=== PATIENT | male | born 1955 | race Caucasian/White ===

== ENCOUNTER → 2019-10-20 | Outpatient (CLI) | payer BC | LOC: COL.RAD 09:22 | DX: C61 Malignant neoplasm of prostate (principal) | CPT/HCPCS: A9503 ==

== ENCOUNTER 2019-11-25 08:27 | Inpatient (IN) | payer BC ==
[~2019-11-25] VITALS: Ht 177.8 cm; Wt 105.9 kg
[2019-11-26] VITALS (11 sets, daily range): BP systolic 118–153; BP diastolic 59–81; PULSE 58–75; TEMP 97.5–98.8
[2019-11-26] MEDS ORDERED: ZIAC 5/6.25MG T1 TAB PO (06:21)
[2019-11-26] MEDS ORDERED: 5-HTP100 MG PO (06:22)
[2019-11-26] MEDS ORDERED: LIPITOR 80MG80 MG PO (06:22)
--- NOTE | 2019-11-26 12:40 | NUR ---
Patient up from OR. Alert and oriented x 3. Spouse at bedside. Lap sites x 4 and midline with edges well approximated. JERRI to LLQ with bloody drainage present in bag, drainage also present at JERRI dressing. Escobar to dependent drainage with dark maroon colored urine, small clots present. Post op VSS. Post op fluids infusing to left wrist IV. SCDs to BLE. Denies further needs at this time.
--- NOTE | 2019-11-26 15:09 | NUR ---
Radiological Technician met with patient and patient's , Denise (ph#[phone]) to discuss discharge planning. Patient lives with his in [place], [place]. Patient sees Gautam Fournier PA-C for primary care and has medications delivered to his home by [facility]. Patient does not use any DME. Patient does not have Advance Directives and is not interested in setting up DPOA-HC at this time. Patient plans to return home upon discharge. No additional concerns at this time.
--- NOTE | 2019-11-26 18:42 | NUR ---
Patient has done well throughout the day. States mild pain at incision sites, refused additional pain medication. Family at bedside throughout the day. Denies pain at this time. Tolerating diet without difficulties. Denies further needs at this time.
--- NOTE | 2019-11-26 18:50 | NUR ---
REPORT RECEIVED FROM BILL LUIS. CARE OF PT ASSUMED AT THIS TIME. PT DENIES NEEDS. CALL LIGHT WITHIN REACH.
--- NOTE | 2019-11-26 20:19 | NUR ---
PT IS ALERT, OX4, APPROPRIATE; VISITING WITH FAMILY UPON ENTRANCE TO ROOM. PT REPORTS SOME MILD PAIN TO ABDOMEN AT INCISION SITES WITH MOVEMENT/ACTIVITY. SCHEDULED TYLENOL GIVEN AT THIS TIME. PT DENIES ANY OTHER ISSUES. SCD'S PLACED ON BILAT. LR INFUSING WITHOUT COMPLICATIONS. CALL LIGHT WITHIN REACH. PT INSTRUCTED TO CALL FOR ASSIST IF NEEDS TO GET OUT OF BED. PT IS AGREEABLE TO THIS.
[2019-11-27 00:10] VITALS: BP 135/59; PULSE 72; TEMP 98.6
[2019-11-27 04:43] VITALS: BP 119/57; PULSE 64; TEMP 98.5
--- NOTE | 2019-11-27 05:45 | NUR ---
PT HAS HAD A GOOD NIGHT, SLEPT WELL THROUGH THE NIGHT. PT REPORTS PAIN TO ABDOMEN ONLY WITH ACTIVITY/MOVEMENT; DENIES PAIN WHILE JUST RESTING. CANNON CATH IN PLACE WITH CLEAR, VEDA URINE NOTED. IVF HAVE BEEN LOCKED D/T PT TOLERATING DIET WITHOUT ISSUES. JERRI DRAIN HAS HAD SMALL AMOUNT OF BLOODY OUTPUT, DECREASING IN AMOUNT. PT DENIES ANY OTHER NEEDS. CALL LIGHT WITHIN REACH.
[2019-11-27 07:24] VITALS: BP 117/59; PULSE 75; TEMP 97.8
[2019-11-27 07:40] LABS: BASO % 0.1 % (0.0-2.0); EOS % 0.1 % (0-4.0); GRAN # 12.5 (1.4-6.5); GRAN % 82.6 % (42.2-75.2); HEMOGLOBIN 12.4 g/dl (13.5-18.0); LYMPH # 1.4 (1.2-3.4); LYMPH % 8.9 % (20.0-51.0); MEAN CELL VOLUME 88 fl (80.0-100.0); MEAN CORPUSCULAR HEMOGLOBIN 30 pg (27.0-31.0); MEAN CORPUSCULAR HGB CONC 34 g/dl (33.0-37.0); MEAN PLATELET VOLUME 10.6 fl (7.4-10.4); MONO # 1.2 (0.1-0.6); MONO % 7.8 % (1.7-9.3); PLATELET COUNT 197 K/mm3 (130-400); RED BLOOD COUNT 4.13 M/mm3 (4.20-5.60); REDCELL DISTRIBUTION WIDTH-CV 13.2 % (11.5-14.5)
[2019-11-27 07:42] LABS: HEMATOCRIT 36.2 % (42.0-52.0)
[2019-11-27 07:53] LABS: CALCIUM 8.7 mg/dL (8.4-10.2); CREATININE, serum 1.17 (0.66-1.25); POTASSIUM 4.2 mmol/L (3.4-5.0)
--- NOTE | 2019-11-27 08:30 | NUR ---
Patient in bed resting. Alert and oriented x 3. Shift assessment complete. Lap sites x 4 and midline incision with edges well approximated. Escobar to dependent drainage with clear yellow urine present. JERRI drain to LLQ with bloody drainge present on dressing, also has bloody driange present in bulb. Patient denies passing gas or BM. Denies pain at this time. Denies further needs at this time.
--- NOTE | 2019-11-27 08:30 | NUR ---
Patient in bed resting. Alert and oriented x 3. Shift assessment complete. Lap sites x4 and midline incision with edges well approximated. JERRI site with drainage present on dressing, small amount of bloody drainge present in bulb. Escobar to dependent drainage with clear yellow urine present in bag. Patient states he did have a BM early this AM. State mild neck to pain relieved by hot pack last night, kpad placed on patient. Denies further needs at this time.
[2019-11-27 11:47] VITALS: BP 126/68; PULSE 98; TEMP 97.8
[2019-11-27 16:55] VITALS: BP 146/71; PULSE 65; TEMP 98.1
[2019-11-27 17:46] VITALS: BP 126/68; PULSE 65; TEMP 97.4
--- NOTE | 2019-11-27 18:20 | NUR ---
Discharge education provided to patient. Educated on hall care and leg bag. Patient and spouse educuated on signs and symptoms of infection and when to call provider. All questions answered. Denies further needs at this time. INT discontinued, catheter tip intact. Denies further needs at this time. Patient out by wheelchair with surgical staff and spouse.
== END 2019-11-27 18:29 | disposition home or self-care (01) | DRG 708 ==
LOC: COL.LAB 08:27 → INPTSU 11-26 05:19 → SURG 11-26 05:19
PROVIDERS: ADMIT Urology
PROC: 0VT34ZZ Resection of Bilateral Seminal Vesicles, Percutaneous Endoscopic Approach (ICD-10-PCS; 2019-11-26)
PROC: 07BC4ZZ Excision of Pelvis Lymphatic, Percutaneous Endoscopic Approach (ICD-10-PCS; 2019-11-26)
PROC: 8E0W4CZ Robotic Assisted Procedure of Trunk Region, Percutaneous Endoscopic Approach (ICD-10-PCS; 2019-11-26)
PROC: 0VBQ4ZZ Excision of Bilateral Vas Deferens, Percutaneous Endoscopic Approach (ICD-10-PCS; 2019-11-26)
PROC: 0VT04ZZ Resection of Prostate, Percutaneous Endoscopic Approach (ICD-10-PCS; principal; 2019-11-26 07:30)
DX: C61 Malignant neoplasm of prostate (principal); I10 Essential (primary) hypertension; K21.9 Gastro-esophageal reflux disease without esophagitis; F41.9 Anxiety disorder, unspecified
CPT/HCPCS: A9284; J0690; J1885; J2270; J7120